=== PATIENT | female | born 1945 | race Caucasian/White ===

== ENCOUNTER 2024-11-09 15:48 | Emergency (ER) | payer MEDICARE, OTHER, SELFPAY ==
[2024-11-09 15:50] VITALS: BP 138/74
[2024-11-09] MEDS: ADACEL 0.5 ML IM (16:49)
--- NOTE | 2024-11-09 18:12 | ED.GENMED ---
History of Present Illness
General
Chief Complaint: Head Injury
Source: patient
Time Seen by Provider: 11/09/24 16:55
History of Present Illness
History of Present Illness:
79-year-old female with past medical history of hyperlipidemia presenting to the emergency department for evaluation after she had neck central slip and fall causing her to strike her head on the ground resulting in questionable loss of
consciousness and laceration to the left occiput. Patient denies any use of anticoagulants. She notes some intermittent tingling sensation to her hands/fingertips since the injury but denies any other extremity related pain. Denies any previous
history of head injuries or any other concerns presently
Past History
Past History
ED Past Medical History: Hypercholesterolemia
ED Past Surgical History: Appendectomy and Orthopedic
Social History
Tobacco: Non-smoker
Alcohol: None
Drug: None
Personal:
Living: with family
Review of Systems
Review of Systems
All Other Systems: ROS reviewed and negative except as documented in HPI and ROS
Phy Exam
Physical Exam
Physical Exam:
GENERAL: Alert , in no apparent distress
EYE: conjunctiva clear
Head: Horizontally oriented superficial 1 cm laceration to the left occiput with small hematoma
NECK: Supple, no midline tenderness
ENT: mmm.
LUNGS: no acute respiratory distress
NEUROLOGICAL: Alert and oriented, ambulates with steady gait
SKIN: Warm and dry, skin intact.
MUSCULOSKELETAL: well perfused. moves all extremities
PSYCH: Normal and appropriate interaction.
Scores
Heart Failure Risk
Heart Failure Risk Score: Not Applicable
Heart Score for Chest Pain Patients
STEMI patient?: Not applicable
Withdrawal Assessment of Alcohol
Withdrawal Assessment Completed?: Not applicable
Course
Orders/Labs/Results
Orders:
Orders
11/09/24 15:56
CT Head W/o Iv Contrast Urgent
Comment:
Reason For Exam: head injury
Tetanus/Diphth/Acelpertussis [Adacel] 0.5 ml IM .ONCE ONE
11/09/24 16:41
CT Cervical Spine W/o Iv Contr Urgent
Comment:
Reason For Exam: head injury, loc
Vital Signs
Initial and Last Documented VS:
Initial Vital Signs
Temp Pulse Resp BP Pulse Ox
97.6 F 100 20 138/74 100
11/09/24 15:50 11/09/24 15:50 11/09/24 15:50 11/09/24 15:50 11/09/24 15:50
Last Documented Vital Signs
Temp Pulse Resp BP Pulse Ox
97.6 F 100 20 138/74 100
11/09/24 15:50 11/09/24 15:50 11/09/24 15:50 11/09/24 15:50 11/09/24 15:50
Procedures
Laceration Closure
Left Posterior Scalp:
Status of Wound: clean
Size of Wound in cm: 1
Description of Wound Edges: sharp
Preparation: cleaned with saline
Type of Closure: single layer closure
Skin Closure Material: skin ayesha
Number of sutures: 3
MDM/Problems Addressed
Differential Diagnosis Includes:
Contusion, concussion, intracranial bleeding, calvarial fracture, cervical spine injury
MDM/Problems Addressed:
79-year-old female presenting to the ER for evaluation following an accidental slip and fall resulting in head injury, questionable LOC, laceration to the posterior scalp noted. Repaired as above without any difficulty. Patient had CT of the head
and cervical spine completed which did not show any acute intracranial abnormality. Incidental meningioma noted on CAT scan. Patient was provided with a printout of the CT report and advised to follow-up with her family doctor for nonemergent MRI.
Patient expressed understanding. Staple removal in 5 to 7 days. Aware of return precautions. Stable for discharge.
*Radiology
Radiology exam reviewed: radiology read reviewed
*Pulse Oximetry
Patient hypoxic: no
*Critical Care Note
Total Time (30-74mins, 75-104mins- exclusive of procedures): Not Applicable
ED Attending Note
-
Portions of this chart may have been created with voice recognition software.� Occasional wrong word or��sound alike� substitutions may have occurred due to the inherent limitations of voice recognition software.
Discharge Plan
Departure
Patient Disposition: Home (Routine Discharge)
Date of Disposition: 11/09/24
Time of Disposition: 18:12
Patient with high blood pressure during this ER visit?: No
Discharge Problem:
Head injury, Laceration of scalp
Instructions: Head Injury in Adults (DC), Laceration Repair With Jeremiah (DC)
Referrals:
Arin Agudelo MD [Family Provider] -
Activity Restrictions/Additional Instructions:
Staple removal in 5-7 days
Interventions
Interventions:
*Risk Screen - Suicide Last Done: 11/09/24 15:50
*General Assessment Last Done: 11/09/24 15:50
*Neglect/Abuse Screening Last Done: 11/09/24 15:50
*ED COVID-19 Vaccine History Last Done: 11/09/24 16:51
*Nursing Disposition Last Done: 11/09/24 18:31
ED- Neurological Assessment Last Done: 11/09/24 16:51
ED-Skin Assessment Last Done: 11/09/24 16:51
Discharge Date and Time
Print Language: NAMIBIAN
== END 2024-11-09 18:31 | disposition home or self-care (01) ==
LOC: EMR 15:48
PROVIDERS: EMERGENCY PHYSICIAN Student in an Organized Health Care Education/Training Program; FAMILY PHYSICIAN Family Medicine
DX: S01.01XA Laceration without foreign body of scalp, initial encounter (principal); W01.0XXA Fall on same level from slipping, tripping and stumbling without subsequent striking against object, initial encounter; E78.00 Pure hypercholesterolemia, unspecified; Z90.49 Acquired absence of other specified parts of digestive tract; Z23 Encounter for immunization
CPT/HCPCS: 12001; 90471; 99284; 70450; 72125; 90715

== ENCOUNTER → 2025-02-01 08:14 | Outpatient (REF) | payer MEDICARE, OTHER, SELFPAY | LOC: MRI 3T 08:14 | PROVIDERS: ATTENDING PHYSICIAN Family Medicine | DX: D32.0 Benign neoplasm of cerebral meninges (principal) | CPT/HCPCS: 70553; A9575 ==